=== PATIENT | female | born 1990 | race Caucasian/White ===

== ENCOUNTER 2024-03-19 05:41 | Emergency (ER) | payer OTHER ==
[~2024-03-19] VITALS: Ht 149.9 cm; Wt 47.6 kg
[2024-03-19] MEDS ORDERED: DICLOFENAC SODI75 MG PO (07:11)
[2024-03-19] MEDS ORDERED: ORPHENADRINE CITRATE 30 MG/ML AMPUL IM ONE (07:15)
[2024-03-19] MEDS ORDERED: KETOROLAC TROMETHAMINE 60 MG VIAL IM ONE ×2 (07:15→07:27)
[2024-03-19] MEDS ORDERED: ORPHENADRINE CITRATE 30 MG/ML AMPUL ONE (07:27)
== END 2024-03-19 07:46 | disposition home or self-care (01) ==
LOC: ER 05:43
DX: M62.838 Other muscle spasm (principal); Z91.013 Allergy to seafood

== ENCOUNTER 2024-03-29 14:30 | Emergency (ER) | payer OTHER ==
[~2024-03-29] VITALS: Ht 149.9 cm; Wt 49.0 kg
[~2024-03-29 14:30] MED LIST: DICLOFENAC SODI75 MG PO
[2024-03-29 14:38] VITALS: BP 111/68; O2SAT 98
[2024-03-29 16:56] LABS: HEMATOCRIT 42.9 % (36.0-45.00); HEMOGLOBIN 14.8 g/dL (12.0-15.00); MEAN CELL VOLUME 93.8 fL (80.00-100.00); MEAN CORPUSCULAR HEMOGLOBIN 32.4 pg (27.00-32.0); MEAN CORPUSCULAR HGB CONC 34.6 g/dl (32.0-36.0); PLATELET COUNT 386 K/uL (150-450); RED BLOOD COUNT 4.57 M/uL (4.00-6.00); RED CELL DISTRIBUTION WIDTH 12.1 % (11.5-14.5)
== END 2024-03-29 19:26 | disposition home or self-care (01) ==
LOC: ER 14:32
DX: J06.9 Acute upper respiratory infection, unspecified (principal); Z20.822 Contact with and (suspected) exposure to COVID-19; Z91.013 Allergy to seafood

== ENCOUNTER 2024-10-07 19:06 | Emergency (ER) | payer OTHER ==
[~2024-10-07] VITALS: Ht 149.9 cm; Wt 47.2 kg
[2024-10-07 22:07] LABS: BASO % 0.3 % (0.1-1.2); EOS # 0.19 (0.04-0.54); EOS % 2.1 % (0.7-7.0); LYMPH # 2.54 (1.18-3.74); LYMPH % 28.2 % (19.3-53.1); MEAN PLATELET VOLUME 9.60 fl (9.4-12.4); MONO # 0.84 (0.24-0.82); MONO % 9.3 % (4.7-12.5); NEUT # 5.38 (1.56-6.13); NEUT % 59.8 % (34.0-71.1); RED CELL DISTRIBUTION WIDTH 11.9 % (11.6-14.4)
[2024-10-07 22:44] LABS: URINE APPEARANCE Clear; URINE BILIRRUBIN Negative (NEGATIVE); URINE BLOOD Negative; URINE COLOR Yellow; URINE KETONE Trace (NEGATIVE); URINE LEUKOCYTE Negative; URINE NITRATE Negative; URINE PROTEIN Negative (NEGATIVE); URINE UROBILINOGEN 1.0 E.U./dl
[2024-10-07 22:47] LABS: URINE BACTERIA 758.4 uL (0.0-1933); URINE EPITHELIAL CELLS 28.5 uL (0.0-38.8); URINE RBC 24.7 uL (0.0-20.8); URINE WBC 6.4 uL (0.0-23.2)
[2024-10-07 22:48] LABS: ALT/SGPT 19.0 U/L (12-78); AST/SGOT 12.0 U/L (15-37); BILIRUBIN TOTAL 0.2 mg/dL (0.3-1.2); BUN CREA RATIO 19.0 (7.0-25.0); CREATININE SERUM 0.91 mg/dL (0.55-1.02); GFR 70.35; GLOBULINA 3.2 G/DL (2.4-3.5); GLUCOSE FASTING 131.0 mg/dL (65-100); OSMOLALITY SERUM 286.0 MOSM/KG (275-295)
[2024-10-07 23:00] LABS: URINE CAST 0.00 uL (0.0-1.40); URINE GLUCOSE 100 MG/DL (NEGATIVE)
== END 2024-10-08 04:17 | disposition home or self-care (01) ==
LOC: ER 20:17
PROVIDERS: Preventive Medicine Public Health & General Preventive Medicine
DX: N83.209 Unspecified ovarian cyst, unspecified side (principal); R10.2 Pelvic and perineal pain; R10.31 Right lower quadrant pain; R10.11 Right upper quadrant pain; R10.9 Unspecified abdominal pain; Z91.013 Allergy to seafood
CPT/HCPCS: 36415; 74177; 76830; Q9965